=== PATIENT | female | born 1950 | race Caucasian/White ===

== ENCOUNTER 2023-11-21 06:57 | Day surgery (SDC) | payer MEDICARE, BC, SELFPAY ==
--- NOTE | 2023-11-21 | IMM_PTH ---
PATIENT: RUTHIE TERESA LOC: [facility] [place] U#:[id number] AGE/SX: 73/F ROOM: RE11/21/[address]: Dr. Ahsan Subramanian MD : 1950 BED: DIS: 11/21/2023 SPEC #: [id number] RECD: 11/22/23 13:14 STATUS: LIBIA REQ #: [id number] WHIT: 11/21/23 00:[address]: Ahsan Subramanian DEPT: IMMUNOHISTOCHEMISTRY RECD BY: Raphael Allred ENTERED: 11/22/23 13:15 SP TYPE: IMMUNO OTHR DR: Dr. Valeri June MD Tissues: C - Tonsil, NOS Procedures: CD45 (add) CK8 (add) Vimentin (add) Pankeratin (initial) PHYSICIAN & INSTITUTION [place] [id number] SPECIMEN INFORMATION: Tissue Source: C- Additional left tonsil biopsy for permanent Clinical Info: Hypertrophy of tonsils, follicular lymphoma grade 1 unspecified site Specimen Number: [id number] CPT code: 34623,65408o5 METHODOLOGY: Deparaffinized sections of prefer/formalin-fixed tissue or PAP/DQ stained slides are incubated with monoclonal/polyclonal antibodies/oligonucleotide probes. Localization is made via biotin free immunoperoxidase method. Appropriate controls are performed and reacted as expected. Results on target cell population are indicated in the following table: RESULTS: ANTIBODY / CLONE RESULT Block C AE1-3 (AE1/AE3/PCK26) negative CK8 (29tdnxC44) negative CD45 (RP2/18) positive Vimentin (V9) positive These tests were developed and their performance characteristics determined by [facility]. They may not have been cleared or approved by the U.S. Food and Drug Administration. The FDA has determined that such clearance or approval is not necessary. The above immunohistochemical/dualISH markers are ordered and reviewed by the Pathologist. INTERPRETATION: C. Additional left tonsil, biopsy: Suspicious for lymphoma. See comment. Comment: The specimen is sent to [facility] for expert opinion and additional immunohistochemical stains performed at [facility] are consistent with Large B-cell lymphoma. CAROLANN/ 11/30/2023
[2023-11-21 07:26] VITALS: BP 162/75; PULSE 74; RESP 18; TEMP 36.6; O2SAT 98; BMI 28.8
[2023-11-21] MEDS: Lactated Ringers 1,000 ML 15 ML IV (07:37)
--- NOTE | 2023-11-21 08:33 | PCM.DC.SUM ---
Providers Primary Care Physician: Dr. Valeri June MD Reason For Visit: Tonsillectomy Medications at Discharge Home Medications amlodipine 5 mg tablet 10 mg PO DAILY 11/15/23 lorazepam 1 mg tablet 1 mg PO 1200,2100 11/15/23 losartan 50 mg tablet 100 mg PO DAILY 11/15/23 sertraline 100 mg tablet 200 mg PO DAILY 11/15/23 zolpidem 10 mg tablet 5 mg PO QHS PRN PRN insomnia 11/15/23 Weight / BMI Weight Weight: 86 kg Body Mass Index (BMI) 28.8 D/C Instructions Discharge Diet: Soft diet Please Follow Up With: Ahsan Subramanian MD When: next week Meaningful Use Info Meaningful Use Meaningful Use Diagnoses (Choose all that apply): None applicable Ischemic Stroke Statin Dosing Therapy Reference: STATIN DOSE THERAPY REFERENCE: * Patients > 75 years receive moderate or high dose statin therapy. * Patients 75 years or YOUNGER should receive HIGH intensity statin dose unless contraindicated. You will be required to document reason for non-treatment if statin daily dose does not meet guidelines. HIGH DOSE STATIN THERAPY DAILY Atorvastatin > than or = to 40 mg Rosuvastatin > than or = to 20 mg Amlodipine + Atorvastatin > than or = to 2.5/40 mg Ezetimibe + Simvastatin 10/80 mg Simvastatin 80mg Discharge Plan Admission Attending Provider: Ahsan Subramanian Primary Care Provider: Valeri June Discharge Orders/Prescriptions Prescriptions: No Action sertraline 100 mg tablet 200 mg PO DAILY amlodipine 5 mg tablet 10 mg PO DAILY lorazepam 1 mg tablet 1 mg PO 1200,2100 losartan 50 mg tablet 100 mg PO DAILY zolpidem 10 mg tablet 5 mg PO QHS PRN PRN (Reason: insomnia) Referrals / Follow Up: Valeri June MD [Primary Care Provider] - Disposition Disposition (needs filled in before D/C Order can be placed): Home, Self Care
[2023-11-21] MEDS: Bupivacaine Mpf 0.5% 30 ML VIAL (08:50)
--- NOTE | 2023-11-21 09:11 | TONS_PTH ---
PATIENT: RUTHIE TERESA LOC: [facility] U#:[id number] AGE/SX: 73/F ROOM: RE11/21/[address]: Dr. Ahsan Subramanian MD : 1950 BED: DIS: 11/21/2023 SPEC #: [id number] RECD: 11/21/23 09:17 STATUS: LIBIA REJulio Cesar #: [id number] WHIT: 11/21/23 09:[address]: Ahsan Subramanian DEPT: SURGICAL PATHOLOGY RECD BY: Raphael Allred ENTERED: 11/21/23 09:17 SP TYPE: TONSILS OTHR DR: Dr. 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 More tissue is requested. MICROSCOPIC DIAGNOSIS A. Left tonsil, biopsy: Consistent with lymphoma. B. Additional left tonsil, biopsy: Consistent with lymphoma. See comment. C. Additional left tonsil biopsy for permanent:Large B-cell lymphoma, morphologic and immunophenotypic feature suggested diffuse large B-cell lymphoma (DLBCL), germinal center B-cell type. See comment. CAROLANN/ 11/30/2023 COMMENT B- Additional left tonsil, biopsy, Immediate evaluation for lymphoma protocol. Atypical degenerated cells noted, suspicious for malignancy. B. The Flow cytometry study from [employer] was cancelled due to very low viability. C. Immunohistochemistry ([id number]) is suspicious forl lymphoma. The specimen [facility] for expert opinion, reviewed by Dr. Meneses and the above diagnosis is rendered. Additional immunohistochemical stains preformed at [facility] supports the above diagnosis. The complete report is viewable in the patient's EMR. Case has been reviewed in consultation with Dr. Angulo who concurs with the above diagnosis. IDC:AM MICROSCOPIC DESCRIPTION Slides are reviewed. GROSS DESCRIPTION A. Received fresh for frozen section diagnosis labeled with the patient's name is a specimen designated Left tonsil biopsy. The specimen consists of piece of gil soft tissue measuring 1.4 x 0.7 x 0.2cm. The entire specimen is submitted for frozen section diagnosis in one cassette. B. Received fresh for lymphoma protocol labeled with the patient's name is a specimen designated Additional left tonsil biopsy. The specimen consists of a piece of gil soft tissue measuring 1.0 x 1.0 x 0.5cm. Two touch imprints are prepared. A section is submitted for flow cytometric study. The rest of the specimen is submitted in one cassette. C. Received in fixative is one container labeled with the patient's name and designated Additional left tonsil biopsy for permanent. The specimen consists of multiple irregular fragments of gil soft tissue that in aggregate measure 2.0 x 2.0 x 0.3 cm. The specimen is totally submitted in one cassette. CAROLANN/ 11/21/2023 TC:0 [facility]: [id number] ADDENDUM ADDENDUM ADDENDUM 12/27/2023 15:12 ADDENDUM 12/27/2023 15:12 ADDENDUM 12/27/2023 15:12 ADDENDUM 12/27/2023 15:12 ADDENDUM 12/27/2023 15:12 The above diagnosis is in compliance with the 5th edition of the World Health Organization Classification of Haematolymphoid Tumours: Lymphoid Neoplasms. Leukemia 35, 6122-2304 (2021)
--- NOTE | 2023-11-21 09:27 | PCM.OPRPT ---
Report of Operation Date of Procedure: 11/21/23 Pre-Operative Diagnosis: left tonsil neoplasm Post-Operative Diagnosis: same Surgery/Procedure Performed:: right tonsil biopsy Description of Surgical Findings:: 4 x 7 cm left tonsil. The tonsil was crossing the midline and in contact with a normal-sized right tonsil. There was no tissue plane laterally to perform tonsillectomy Surgeon: Ahsan Subramanian Type of Anesthesia: General Anesthesiologist: Clyde Chauhan Estimated Blood Loss (mL): minimal Description of Procedure: The patient was taken operating on 11/21/2023. She was placed in the supine position on the operating table. She was given sufficient general endotracheal anesthesia. The table turned 90 degrees in a clockwise fashion. The patient was draped sterilely. A Yash mouthgag inserted the patient's mouth the patient was suspended on the [place] stand. She was found to have a very large left tonsil crossing the midline and touching the right tonsil which was normal in size. The uvula was being pressed onto the right tonsil. Measurement of the tonsil was 4 x 7 cm. The inferior extent of the tonsil extended down to the level of the epiglottis. I could not develop a tissue plane laterally. I then elected to send a piece of tissue for frozen section. This came back as likely carcinoma. More tissue was sent for both permanent section and fresh in saline. All of the biopsy sites were cauterized with suction cautery. Hemostasis was achieved in this way. 0.5% Marcaine was placed on adenoid sponge and placed on the biopsy sitesl for 1 minute and then removed. The mouthgag was closed. It was reopened to inspect for bleeding. There was none. The instrumentation was removed. The patient was then turned back to the regular anesthesia position and awoken. She was brought to recovery room in stable condition. Blood loss minimal, replacement none. Sponge, needle, and instrument count were correct at the end of the procedure.
[2023-11-21 09:40] VITALS: BP 162/75; BP 179/85; PULSE 96; RESP 18; TEMP 36.8; O2SAT 95
[2023-11-21 09:45] VITALS: BP 162/75; BP 165/79; PULSE 94; RESP 16; O2SAT 97
[2023-11-21 10:00] VITALS: BP 162/75; BP 169/72; PULSE 95; RESP 16; TEMP 36.2; O2SAT 96
== END 2023-11-21 10:34 | disposition home or self-care (01) ==
LOC: SDC 06:59 → AC 07:01
PROVIDERS: PCP Family Medicine; Referring Provider Otolaryngology; Visit Provider Otolaryngology
PROC: (CPT 42826; principal; 2023-11-21 08:25)
DX: C09.9 Malignant neoplasm of tonsil, unspecified (principal); C82.00 Follicular lymphoma grade I, unspecified site; J35.1 Hypertrophy of tonsils; I10 Essential (primary) hypertension; Z79.899 Other long term (current) drug therapy; J35.8 Other chronic diseases of tonsils and adenoids
CPT/HCPCS: 42826; 00170; 88304; 88331; 88332; 88341; 88342; J7120; J2405